=== PATIENT | female | born 1990 | race Caucasian/White ===

== ENCOUNTER → 2016-04-15 | Outpatient (CLI) | payer OTHER ==
--- NOTE | 2016-04-15 17:34 | REP ---
MAXILLOFACIAL CT WITHOUT CONTRAST: HISTORY: Chronic sinusitis. Minimal mucosal thickening is present in the maxillary and left sphenoid sinuses. Round soft-tissue densities are present in the right maxillary sinus. These represent retention cysts or polyps. The remaining sinuses are clear. The osteomeatal units are patent. The middle and inferior nasal turbinates are partially paradoxical. 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 There is mild deviation of the nasal septum to the left. A spur is present arising from the left side of the nasal septum. The spur abuts the left inferior nasal turbinate. The cribriform plate, medial mercedes of the orbits and optic canals are intact. There is aeration of the right anterior quinoid process. The carotid canals form a segment of the posterolateral mercedes of the sphenoid sinus. The sphenoid sinus septum inserts into the left internal carotid canal wall. IMPRESSION:1. Sinus mucosal thickening as described above. 2. Right maxillary sinus retention cysts or polyps. Signed by Jose Alberto Montano MD 04/15/2016 05:43 P
== END ==
LOC: M RAD 14:52
PROVIDERS: ATTEND Nurse Practitioner Family
DX: J32.9 Chronic sinusitis, unspecified (principal); J34.1 Cyst and mucocele of nose and nasal sinus; J33.8 Other polyp of sinus

== ENCOUNTER → 2016-07-15 | Outpatient (REF) | payer OTHER | LOC: M SFHCWAGY 12:21 | PROVIDERS: ATTEND Nurse Practitioner Women's Health | DX: Z12.4 Encounter for screening for malignant neoplasm of cervix (principal); N94.10 Unspecified dyspareunia; R10.2 Pelvic and perineal pain; Z11.3 Encounter for screening for infections with a predominantly sexual mode of transmission ==